=== PATIENT | female | born 1950 | race Caucasian/White ===

== ENCOUNTER 2019-11-05 15:10 | Inpatient (IN) | payer MEDICARE, OTHER ==
[~2019-11-05] VITALS: Ht 152.4 cm; Wt 68.0 kg
--- NOTE | 2019-11-05 15:40 | NUR ---
PATIENT ARRIVED FROM [facility]. PATIENT IS AWAKE AND ALERT. BROTHER, WHO IS POA IS HERE AT BEDSIDE.
--- NOTE | 2019-11-05 16:39 | NUR ---
REPORT GIVEN TO SUHAIL RN...
[2019-11-05] MEDS ORDERED: LORAZEPAM 0.5 MG TABLET PO PRN (17:45)
[2019-11-05] MEDS ORDERED: MAG HYDROX/AL HYDROX/SIMETH 30 ML LIQUID UDC PO PRN (17:45)
[2019-11-05] MEDS ORDERED: BLOOD SUGAR DIAGNOSTIC 1 EACH STRIP VI ONE (17:45)
[2019-11-05] MEDS ORDERED: TEMAZEPAM 7.5 MG CAPSULE PO PRN (17:45)
--- NOTE | 2019-11-05 17:45 | NUR ---
RECEIVED PATIENT FROM ER ADMITTED TO GPS OVER FLOW VOLUNTARY ,CAME TO UNIT [facility]IA [facility] WITH HER BROTHER JULIET CHU. BELONGINGS ACCOUNTED AND SIGNED, NO S/S OF ACUTE DISTRESS NOTED, NO PAIN NOTED. SAFETY AND COMFORT PROVIDED. CALL LIGHT WITHIN REACH. WILL CONTINUE TO MONITOR.
[2019-11-05 17:52] VITALS: BP 103/55
[2019-11-05 20:34] VITALS: BP 141/75
[2019-11-06] MEDS ORDERED: MAGNESIUM HYDROXIDE 30 ML LIQUID UDC PO PRN (03:45)
[2019-11-06 05:09] VITALS: BP 119/63
--- NOTE | 2019-11-06 06:56 | NUR ---
PATIENT ASLEEP . NO S/S SOB AND NO PAIN AT THIS TIME. SAFETY AND COMFORT PROVIDED. CALL LIGHT IN REACH. WILL CONTINUE TO MONITOR
[2019-11-06] MEDS: APIXABAN 5 MG TABLET PO SCH ×2 (11:30→20:35)
[2019-11-06 11:58] VITALS: BP 100/63
[2019-11-06] MEDS: DIGOXIN 250 MCG TABLET PO SCH (13:52)
--- NOTE | 2019-11-06 14:50 | NUR ---
Social Work/Initial Discharge Plan: Patient currently resides at a [address] [place], [place] [address] ([phone]). Patient will return back to the facility upon discharge. Patient's brother/DPOA, Rigo Katz ([phone]) is involved in the patient's care. SW will continue to work with patient, family, and MD to ensure a safe and proper discharge plan.
--- NOTE | 2019-11-06 14:53 | NUR ---
Social Work/Family Contact: utility worker woolen mill spoke with patient's brother/DPOA, Rigo Katz ([phone]) and collected collateral information regarding patient's mental illness. Rigo informed this contract technical writer of the patient's recent decline in functioning, wandering risk, weight loss (21lbs), loss of appetite and sleep. SW confirmed with Rigo that the patient will return to her Board and Care facility upon discharge [address] [place] [address].
[2019-11-06 16:23] VITALS: BP 113/56
[2019-11-06 20:00] VITALS: BP 92/47
--- NOTE | 2019-11-06 20:30 | NUR ---
VSS 97.8-70-20 BP 92/47. SATS 92% ON ROOM AIR. COLOR GOOD. A&O X 3 WITH APPROPRIATE RESPONSES. SKIN WARM, DRY, AND INTACT THROUGHOUT. NO IV OR IVHL. NO SKIN BREAKDOWNS PATIENT AMBULATES TO BATHROOM AND SELF TURNS AND REPOSITIONS. ABDOMEN SOFTLY DISTENDED WITH +BOWEL SOUNDS. LUNGS CTA TO BUL. NO JVD OR OTHER EDEMAS WITH ALL PERIPHERAL PULSES+. PATIENT SIGNS CONSENTS FOR 3 NEW PSYCHOTROPIC MEDS AND WILL BEGIN THESE TONIGHT. PATIENT IS PLEASANT AND COOPERATIVE. MAKES GOOD EYE TO EYE CONTACT AND IS COOPERATIVE TO ALL PHASES OF NURSING CARE. PATIENT SHOWS NO SIGNS OF ANXIETY AT THIS TIME. ASSESSMENT IS ONGOING.
[2019-11-06] MEDS: MONTELUKAST SODIUM 10 MG TABLET PO SCH (20:36)
[2019-11-06] MEDS: TRAZODONE 100 MG TABLET PO SCH (21:39)
[2019-11-06] MEDS: LAMOTRIGINE 25 MG TABLET PO SCH (21:41)
[2019-11-06] MEDS: QUETIAPINE FUMARATE 200 MG TABLET PO SCH (21:42)
[2019-11-07 04:00] VITALS: BP 112/55
[2019-11-07 07:02] LABS: BASOPHILS % (AUTO) 0.4 % (0.0-2.0); EOSINOPHILS # (AUTO) 0.3 K/uL (0.0-0.7); EOSINOPHILS % (AUTO) 4.2 % (0.0-7.0); HEMATOCRIT 38.3 % (31.2-41.9); HEMOGLOBIN 12.7 g/dL (10.9-14.3); LYMPHOCYTES # (AUTO) 1.9 K/uL (20.0-40.0); LYMPHOCYTES % (AUTO) 28.7 % (20.5-51.5); MEAN CORPUSCULAR HEMOGLOBIN 29.9 uug (24.7-32.8); MEAN CORPUSCULAR HGB CONC 33 g/dL (32.3-35.6); MEAN CORPUSCULAR VOLUME 90.5 fL (75.5-95.3); MONOCYTES # (AUTO) 0.6 K/uL (2.0-10.0); MONOCYTES % (AUTO) 8.8 % (0.0-11.0); NEUTROPHILS # (AUTO) 3.8 K/uL (1.8-8.9); NEUTROPHILS % (AUTO) 57.9 % (38.5-71.5); PLATELET COUNT (AUTO) 263 K/uL (179-408); RED BLOOD CELL COUNT(AUTO) 4.23 MIL/uL (3.63-4.92); WHITE BLOOD COUNT (AUTO) 6.6 K/uL (3.8-11.8)
[2019-11-07] MEDS: LEVOTHYROXINE SODIUM 112 MCG TABLET PO SCH (07:09)
[2019-11-07 07:13] LABS: CARBON DIOXIDE 33 mmol/L (21-32); CHLORIDE 105 mmol/L (98-107); CREATININE 0.6 mg/dL (0.6-1.3); GLUCOSE 111 mg/dL (74-106); POTASSIUM 4.1 mmol/L (3.5-5.1); UREA NITROGEN, BLOOD 21 mg/dL (7-18)
[2019-11-07] MEDS: busPIRone 10 MG TABLET PO SCH ×2 (10:52→18:34)
[2019-11-07] MEDS: LAMOTRIGINE 25 MG TABLET PO SCH ×2 (10:53→20:09)
[2019-11-07] MEDS: APIXABAN 5 MG TABLET PO SCH ×2 (10:53→20:04)
[2019-11-07 12:05] VITALS: BP 101/58
[2019-11-07] MEDS: DIGOXIN 250 MCG TABLET PO SCH (14:48)
[2019-11-07 16:00] VITALS: BP 98/49
--- NOTE | 2019-11-07 19:54 | NUR ---
received in bed awake NO S/S OF ACUTE DISTRESS NOTED, NO PAIN NOTED. SAFETY AND COMFORT PROVIDED. WILL CONTINUE TO MONITOR.
--- NOTE | 2019-11-07 19:56 | NUR ---
pt seen by dr napier
[2019-11-07] MEDS: QUETIAPINE FUMARATE 200 MG TABLET PO SCH (20:03)
[2019-11-07] MEDS: TRAZODONE 100 MG TABLET PO SCH (20:04)
[2019-11-07] MEDS: MONTELUKAST SODIUM 10 MG TABLET PO SCH (20:05)
[2019-11-07 21:00] VITALS: BP 93/50
[2019-11-08 04:00] VITALS: BP 95/51
[2019-11-08] MEDS: LEVOTHYROXINE SODIUM 112 MCG TABLET PO SCH (06:10)
[2019-11-08] MEDS: busPIRone 10 MG TABLET PO SCH ×2 (08:30→17:12)
[2019-11-08] MEDS: LAMOTRIGINE 25 MG TABLET PO SCH ×2 (08:31→21:25)
[2019-11-08] MEDS: APIXABAN 5 MG TABLET PO SCH ×2 (08:32→21:28)
[2019-11-08 11:42] VITALS: BP 107/55
[2019-11-08] MEDS: DIGOXIN 250 MCG TABLET PO SCH (15:20)
[2019-11-08 15:23] VITALS: BP 103/61
--- NOTE | 2019-11-08 17:30 | NUR ---
took over care from Miya RN, pt awake alert, on voluntary status, compliant and pleasant, safety measures maintained
--- NOTE | 2019-11-08 18:23 | NUR ---
eating dinner and watching TV but laughing and talking to herself
--- NOTE | 2019-11-08 20:00 | NUR ---
Received patient laying in bed. A/O x 3 with episodes of confusion. Patient is heard talking to herself. When asked who is she talking too? She said "oh nothing, just something on the TV". Patient denies pain or SOB. Med compliant and seen eating. Safety initiated. Call light within reach, will continue to monitor.
[2019-11-08] MEDS: TRAZODONE 100 MG TABLET PO SCH (21:24)
[2019-11-08] MEDS: MONTELUKAST SODIUM 10 MG TABLET PO SCH (21:24)
[2019-11-08] MEDS: QUETIAPINE FUMARATE 200 MG TABLET PO SCH (21:25)
[2019-11-09 05:29] VITALS: BP 152/66
--- NOTE | 2019-11-09 05:29 | NUR ---
Vital signs entered at 0529 was incorrect. It was an error. This set of vitals belongs to a different patient.
--- NOTE | 2019-11-09 05:32 | NUR ---
No changes t/o shift. Patient slept intermittently t/o shift. No PRN's given. Denies pain or SOB. Safety and comfort measures maintained t/o shift. Vital signs stable. All meds given as ordered. Med compliant. No behavioral issues noted. All needs met.
[2019-11-09] MEDS: LEVOTHYROXINE SODIUM 112 MCG TABLET PO SCH (06:13)
--- NOTE | 2019-11-09 07:45 | NUR ---
Received patient in bed, awake and verbally responsive. No signs of distress noted. No SOD. No complain of pain or discomfort. No SI noted. kept clean and comfortable. Will continue to monitor.
[2019-11-09] MEDS: busPIRone 10 MG TABLET PO SCH ×2 (08:38→16:42)
[2019-11-09] MEDS: LAMOTRIGINE 25 MG TABLET PO SCH ×3 (08:38→16:42)
[2019-11-09] MEDS: APIXABAN 5 MG TABLET PO SCH ×2 (08:39→20:35)
[2019-11-09] MEDS: QUETIAPINE FUMARATE 25 MG TABLET PO SCH (08:39)
[2019-11-09] MEDS ORDERED: QUETIAPINE FUMARATE 100 MG TABLET PO SCH (09:00)
[2019-11-09 12:09] VITALS: BP 106/48
[2019-11-09] MEDS: DIGOXIN 250 MCG TABLET PO SCH (13:17)
[2019-11-09 15:43] VITALS: BP 111/54
--- NOTE | 2019-11-09 18:48 | NUR ---
patient in bed, awake and verbally responsive. No signs of distress noted. No SOB. No complain or discomfort noted. No SI/HI noted. No behavior issues throughout my shift. kept clean and comfortable. patient will be transfer to MHU, gave report to Casie.
[2019-11-09 20:27] VITALS: BP 126/70
[2019-11-09] MEDS: TRAZODONE 100 MG TABLET PO SCH (20:32)
[2019-11-09] MEDS: QUETIAPINE FUMARATE 200 MG TABLET PO SCH (20:33)
[2019-11-09] MEDS: MONTELUKAST SODIUM 10 MG TABLET PO SCH (21:00)
--- NOTE | 2019-11-09 22:00 | NUR ---
received pt on unit at 1900. pleasant upon approach. compliant with medications and staff direction. observed to be singing/talking to self, at times. as of 2200, she appears to be asleep. no distress noted. will continue to monitor closely.
--- NOTE | 2019-11-10 01:36 | NUR ---
pt is now awake, and restless; PRN restoril was given, for insomnia.
--- NOTE | 2019-11-10 02:00 | NUR ---
appears to be asleep. no distress noted.
--- NOTE | 2019-11-10 03:00 | NUR ---
appears to be asleep. no distress noted.
--- NOTE | 2019-11-10 03:00 | NUR ---
appears to be asleep. no distress noted.
--- NOTE | 2019-11-10 06:00 | NUR ---
slept well. continues to sleep. no distress noted.
[2019-11-10 07:30] VITALS: BP 111/60
[2019-11-10] MEDS: LAMOTRIGINE 25 MG TABLET PO SCH ×3 (08:20→16:22)
[2019-11-10] MEDS: QUETIAPINE FUMARATE 25 MG TABLET PO SCH (08:20)
[2019-11-10] MEDS: APIXABAN 5 MG TABLET PO SCH ×2 (08:29→20:03)
[2019-11-10] MEDS: busPIRone 10 MG TABLET PO SCH ×2 (12:23→16:23)
[2019-11-10] MEDS: LEVOTHYROXINE SODIUM 112 MCG TABLET PO SCH (12:23)
[2019-11-10] MEDS: DIGOXIN 250 MCG TABLET PO SCH (12:24)
[2019-11-10 15:00] VITALS: BP 111/62
--- NOTE | 2019-11-10 16:36 | NUR ---
Gps/Labor Relations Officer- Noted talking to herself, occ. singing , pleasant affect, redirectable, compliant with mediciations..Adequate relief from lower back pain, safety reviewed and continue to emphasized
[2019-11-10] MEDS: ACETAMINOPHEN 325 MG TABLET PO PRN (18:18)
[2019-11-10 20:00] VITALS: BP 116/82
[2019-11-10] MEDS: QUETIAPINE FUMARATE 200 MG TABLET PO SCH (20:01)
[2019-11-10] MEDS: TRAZODONE 100 MG TABLET PO SCH (20:01)
[2019-11-10] MEDS: MONTELUKAST SODIUM 10 MG TABLET PO SCH (20:01)
[2019-11-11] MEDS: LEVOTHYROXINE SODIUM 112 MCG TABLET PO SCH (06:20)
[2019-11-11 08:00] VITALS: BP 110/59
[2019-11-11] MEDS: busPIRone 10 MG TABLET PO SCH ×2 (09:06→16:38)
[2019-11-11] MEDS: LAMOTRIGINE 25 MG TABLET PO SCH ×3 (09:07→16:38)
[2019-11-11] MEDS: APIXABAN 5 MG TABLET PO SCH ×2 (09:08→20:22)
--- NOTE | 2019-11-11 10:49 | NUR ---
Received patient asleep in her assigned bed. Bed is in low and locked position. During face to face assessment, patient is calm, cooperative, and redirectable. She is medication adherent, no adverse reaction noted. Patient denies SI/HI, denies AH/VH. Patient is educated about communicating needs to staff appropriately and impulse control, able to verbalize understanding. Patient is able to tolerate food and fluids. Will continue to monitor.
[2019-11-11] MEDS: DIGOXIN 250 MCG TABLET PO SCH (13:51)
[2019-11-11 15:00] VITALS: BP 107/52
[2019-11-11 15:16] VITALS: BP 107/62
[2019-11-11 20:05] VITALS: BP 110/52
[2019-11-11] MEDS: TRAZODONE 100 MG TABLET PO SCH (20:17)
[2019-11-11] MEDS: QUETIAPINE FUMARATE 200 MG TABLET PO SCH (20:18)
[2019-11-11] MEDS: MONTELUKAST SODIUM 10 MG TABLET PO SCH (20:19)
--- NOTE | 2019-11-12 02:38 | NUR ---
RECEIVED PATIENT IN BED. PLEASANT UPON APPROACH BUT COULD BE HEARD TALKING TO HERSELF WITH SMILES OCCASIONALLY. DENIES HEARING VOICES.ALSO DENIES PAIN OR DISCOMFORT. MOOD IS LABILE. SHE IS MEDICATION COMPLIANT . VISUAL CHECKS MADE ON HER FOR SAFETY.WILL CONTINUE TO MONITOR.
[2019-11-12] MEDS: LEVOTHYROXINE SODIUM 112 MCG TABLET PO SCH (06:25)
--- NOTE | 2019-11-12 06:57 | NUR ---
SLEPT FOR 9;15 HRS.TOOK ALL MEDS WELL.
[2019-11-12 07:30] VITALS: BP 112/58
[2019-11-12] MEDS: busPIRone 10 MG TABLET PO SCH ×2 (08:32→17:31)
[2019-11-12] MEDS: LAMOTRIGINE 25 MG TABLET PO SCH ×3 (08:32→17:30)
[2019-11-12] MEDS: APIXABAN 5 MG TABLET PO SCH ×2 (08:34→20:08)
[2019-11-12] MEDS: DIGOXIN 250 MCG TABLET PO SCH (12:28)
[2019-11-12 15:12] VITALS: BP 107/74
[2019-11-12 20:00] VITALS: BP 131/77
[2019-11-12] MEDS: TRAZODONE 100 MG TABLET PO SCH (20:07)
[2019-11-12] MEDS: QUETIAPINE FUMARATE 200 MG TABLET PO SCH (20:07)
[2019-11-12] MEDS: MONTELUKAST SODIUM 10 MG TABLET PO SCH (20:10)
--- NOTE | 2019-11-13 01:00 | NUR ---
Social Work Individual Therapy Note: County Director met with patient today to provide brief individual supportive counseling. Patient presented with euthymic mood and congruent affect. SW explored patient' feelings and emotions, however, patient presented internally pre-occupied. Patient was able to minimally engage in conversation but was non-sensical. Patient denies auditory hallucinations. County Director will remain available to patient and continue to proide supportive counseling.
--- NOTE | 2019-11-13 06:08 | NUR ---
Received Pt awake in bed, pleasant on approach. A+Ox3 with episodes of forgetfulness. Noted to laugh to herself inappropriately and respond to internal stimuli at times. Superficially bright affect. Denies SI/HI. Noted to be isolative and withdrawn. Compliant with medications. No aggressive behaviors.
[2019-11-13] MEDS: LEVOTHYROXINE SODIUM 112 MCG TABLET PO SCH (06:16)
[2019-11-13] MEDS: ACETAMINOPHEN 325 MG TABLET PO PRN (06:30)
[2019-11-13 07:30] VITALS: BP 99/50
[2019-11-13] MEDS: busPIRone 10 MG TABLET PO SCH ×2 (08:20→17:50)
[2019-11-13] MEDS: LAMOTRIGINE 25 MG TABLET PO SCH ×3 (08:20→17:50)
[2019-11-13] MEDS: APIXABAN 5 MG TABLET PO SCH ×2 (08:26→20:43)
--- NOTE | 2019-11-13 12:16 | NUR ---
Social Work/Family Contact: blade worker spoke with patient's brother/DPOA, Rigo Katz ([phone]) regarding patient's discharge plans. Rigo stated that he would ideally want a new independent living or board and care for the patient, that does not have to be in [facility]. ELINOR informed Rigo that she will have [facility] ([phone]) call him for placement options in the [place]. ELINOR then spoke with [facility] and will follow up.
[2019-11-13] MEDS: DIGOXIN 250 MCG TABLET PO SCH (12:52)
[2019-11-13 15:24] VITALS: BP 109/54
--- NOTE | 2019-11-13 19:32 | NUR ---
Patient received from u in stable condition 17:45; patient responsive to internal stimuli but with no signs of distress; and stable vital signs; patient will continue to be monitored
--- NOTE | 2019-11-13 20:00 | NUR ---
RECEIVED PATIENT AWAKE IN BED, WATCHING TV. PATIENT IS A/O X3. DENIES PAIN OR DISCOMFORT. NO RESP. DISTRESS NOTED. BED ALARM ON. CALL LIGHT IN REACH. ALL NEEDS ATTENDED. WILL CONTINUE TO MONITOR AND ASSESS.
[2019-11-13 20:04] VITALS: BP 107/74
[2019-11-13] MEDS: QUETIAPINE FUMARATE 200 MG TABLET PO SCH (20:28)
[2019-11-13] MEDS: TRAZODONE 100 MG TABLET PO SCH (20:29)
[2019-11-13] MEDS: MONTELUKAST SODIUM 10 MG TABLET PO SCH (20:29)
--- NOTE | 2019-11-14 00:20 | NUR ---
Hands off report received. Pt in no acute distress. Will continue to monitor.
[2019-11-14] MEDS: LEVOTHYROXINE SODIUM 112 MCG TABLET PO SCH (06:35)
--- NOTE | 2019-11-14 06:47 | NUR ---
Pt slept 7 hours. Pt in no acute distress. Pt cooperative with care and can make her needs known. . Safety and comfort provided. Will endorse to incoming nurse for continuity of care.
--- NOTE | 2019-11-14 08:00 | NUR ---
RECEIVED PATIENT AWAKE IN BED, WATCHING TV. PATIENT IS A/O X3. DENIES PAIN OR DISCOMFORT. NO RESP. DISTRESS NOTED. BED ALARM ON. CALL LIGHT IN REACH. ALL NEEDS ATTENDED. WILL CONTINUE TO MONITOR AND ASSESS FOR SAFETY AND COMFORT.
[2019-11-14] MEDS: busPIRone 10 MG TABLET PO SCH ×2 (09:40→17:53)
[2019-11-14] MEDS: LAMOTRIGINE 25 MG TABLET PO SCH ×3 (09:41→17:53)
[2019-11-14] MEDS: APIXABAN 5 MG TABLET PO SCH ×2 (09:42→20:52)
[2019-11-14 11:26] VITALS: BP 98/47
[2019-11-14] MEDS: DIGOXIN 250 MCG TABLET PO SCH (13:38)
[2019-11-14 15:26] VITALS: BP 95/57
--- NOTE | 2019-11-14 18:20 | NUR ---
PATIENT AWAKE IN BED, WATCHING TV. PATIENT IS A/O X3. DENIES PAIN OR DISCOMFORT. NO RESP. DISTRESS NOTED. BED ALARM ON. CALL LIGHT IN REACH. PT'S RIGHT FOOT APPEARS REDDENED AND WARM ANS SWOLLEN ON TOP. DR BEYER AWARE. ALL NEEDS ATTENDED. WILL GIVE REPORT ACCORDINGLY. .
[2019-11-14 20:05] VITALS: BP 102/66
[2019-11-14] MEDS: TRAZODONE 100 MG TABLET PO SCH (20:48)
[2019-11-14] MEDS: MONTELUKAST SODIUM 10 MG TABLET PO SCH (20:48)
[2019-11-14] MEDS: QUETIAPINE FUMARATE 200 MG TABLET PO SCH (20:48)
--- NOTE | 2019-11-15 05:19 | NUR ---
Patient slept t/o shift. No behavioral issues noted. Vital signs stable. Medications given as ordered. Med compliant. Safety and comfort measures maintained t/o shift. All needs met.
[2019-11-15] MEDS: LEVOTHYROXINE SODIUM 112 MCG TABLET PO SCH (06:10)
[2019-11-15 06:19] LABS: BASOPHILS % (AUTO) 0.7 % (0.0-2.0); EOSINOPHILS # (AUTO) 0.2 K/uL (0.0-0.7); EOSINOPHILS % (AUTO) 3.3 % (0.0-7.0); HEMATOCRIT 38.8 % (31.2-41.9); HEMOGLOBIN 12.9 g/dL (10.9-14.3); LYMPHOCYTES # (AUTO) 1.5 K/uL (20.0-40.0); LYMPHOCYTES % (AUTO) 28.5 % (20.5-51.5); MEAN CORPUSCULAR HEMOGLOBIN 30.1 uug (24.7-32.8); MEAN CORPUSCULAR HGB CONC 33 g/dL (32.3-35.6); MEAN CORPUSCULAR VOLUME 90.7 fL (75.5-95.3); MONOCYTES # (AUTO) 0.4 K/uL (2.0-10.0); MONOCYTES % (AUTO) 8.3 % (0.0-11.0); NEUTROPHILS % (AUTO) 59.2 % (38.5-71.5); PLATELET COUNT (AUTO) 234 K/uL (179-408); RED BLOOD CELL COUNT(AUTO) 4.28 MIL/uL (3.63-4.92); WHITE BLOOD COUNT (AUTO) 5.1 K/uL (3.8-11.8)
[2019-11-15 06:51] LABS: THYROID STIMULATING HORMONE 0.647 mIU/mL (0.358-3.740)
[2019-11-15 07:26] LABS: BILIRUBIN,TOTAL 0.3 mg/dL (0.2-1.0); CREATININE 0.7 mg/dL (0.6-1.3); POTASSIUM 4.1 mmol/L (3.5-5.1); TOTAL PROTEIN, SERUM 6.4 g/dL (6.4-8.2)
--- NOTE | 2019-11-15 07:32 | NUR ---
RECEIVED PATIENT ALERT AND AWAKE IN BED. NO S/S OF ACUTE DISTRESS NOTED.NO C/O PAIN AT THIS TIME. SAFETY AND COMFORT PROVIDED . CALL LIGHT WITHIN REACH. WILL CONTINUE TO MONITOR
[2019-11-15] MEDS: busPIRone 10 MG TABLET PO SCH ×2 (09:34→17:42)
[2019-11-15] MEDS: LAMOTRIGINE 25 MG TABLET PO SCH ×3 (09:34→17:42)
[2019-11-15] MEDS: APIXABAN 5 MG TABLET PO SCH ×2 (09:35→21:34)
--- NOTE | 2019-11-15 10:59 | NUR ---
Social Work/Family Contact: poultry process worker received a phone call and spoke with patient's brother/DPOA, Rigo Katz ([phone]) who was concerned about the patient's discharge if patient is not ready. Rigo stated that he feels the patient continues to remain increasingly anxious and has auditory hallucinations and is not ready to go to a Board and Care just yet. ELINOR shared these concerns with Dr. Roman who stated that he will meet with the patient today and adjust her medications. However, patient is accepted to a Board and Care after [facility] ([phone]) evaluated the patient yesterday to [facility] [address] [address]. Patient discharge is pending for Wednesday11/17/19.
[2019-11-15 11:33] VITALS: BP 112/69
[2019-11-15] MEDS: DIGOXIN 250 MCG TABLET PO SCH (12:48)
[2019-11-15 15:23] VITALS: BP 101/60
[2019-11-15 17:07] LABS: *BILIRUBIN,URIN NEGATIVE (NEGATIVE); *BLOOD, URINE NEGATIVE (NEGATIVE); *CLARITY,URINE CLOUDY (CLEAR); *COLOR,URINE YELLOW (YELLOW); *KETONES,URINE NEGATIVE (NEGATIVE); LEUKOCYTE ESTERASE ,URINE 1+ (NEGATIVE); NITRITE, URINE NEGATIVE (NEGATIVE); UGLUCOSE NEGATIVE (NEGATIVE)
[2019-11-15 17:22] LABS: BACTERIA,URINE MANY /HPF (NONE SEEN); SQUAMOUS EPITHELIAL CELL,UR MANY /HPF (NONE SEEN)
--- NOTE | 2019-11-15 20:00 | NUR ---
Patient received into care, sitting up in bed, resting comfortably. Pateint is alert/oriented x2 and has no complaints of pain or discomfort at this time. All safety and fall precaution measures are in place. Personal items are within reach at all times. Will continue to monitor and assess.
[2019-11-15 20:51] VITALS: BP 126/66
[2019-11-15] MEDS: QUETIAPINE FUMARATE 200 MG TABLET PO SCH (21:31)
[2019-11-15] MEDS: TRAZODONE 100 MG TABLET PO SCH (21:31)
[2019-11-15] MEDS: MONTELUKAST SODIUM 10 MG TABLET PO SCH (21:35)
[2019-11-15] MEDS: CEphaleXIN 500 MG CAPSULE PO SCH (21:42)
--- NOTE | 2019-11-16 04:44 | NUR ---
Patient slept 4 hours. Patient states she did not sleep well at all.
--- NOTE | 2019-11-16 05:44 | NUR ---
Patient slept intermittently throughout night with no complaints of pain or discomfort verbalized nor any sighs/symptoms of acute distress/discomfort noted or observed by nurse. Patient was compliant with all aspects of care and she is warm, dry, and comfortable. Safety and fall precaution measures remain in place. Personal items remain within reach.
[2019-11-16] MEDS: LEVOTHYROXINE SODIUM 112 MCG TABLET PO SCH (06:05)
[2019-11-16] MEDS: CEphaleXIN 500 MG CAPSULE PO SCH ×3 (06:05→21:00)
--- NOTE | 2019-11-16 07:30 | NUR ---
RECEIVED PATIENT ALERT AND AWAKE IN BED. NO S/S OF ACUTE DISTRESS NOTED.NO C/O PAIN AT THIS TIME. SAFETY AND COMFORT PROVIDED .
[2019-11-16] MEDS: CYANOCOBALAMIN 1000 MCG/ML VIAL IM SCH (08:16)
[2019-11-16] MEDS: busPIRone 10 MG TABLET PO SCH ×2 (08:16→16:03)
[2019-11-16] MEDS: LAMOTRIGINE 25 MG TABLET PO SCH ×3 (08:16→16:07)
[2019-11-16] MEDS: APIXABAN 5 MG TABLET PO SCH ×2 (08:19→20:58)
[2019-11-16] MEDS ORDERED: QUETIAPINE FUMARATE 100 MG TABLET PO SCH (09:00)
--- NOTE | 2019-11-16 10:53 | NUR ---
pt is talking to her self
[2019-11-16 11:00] VITALS: BP 90/53
[2019-11-16] MEDS: DIGOXIN 250 MCG TABLET PO SCH (12:08)
--- NOTE | 2019-11-16 12:20 | NUR ---
Social Work Individual Therapy Note: Garment Patternmaker met with patient today to provide brief individual supportive counseling. Patient presented with euthymic mood and congruent affect. Patient presented lying in bed. Patient denied auditory hallucinations stating, "I think I hear my brother's voice then I realize he's not actually here". Patient was laughing at her own statements. SW explored patient' feelings and emotions, and discussed discharge plans. Patient was increasingly excited and happy to be going to a new Board and Care placement and stated, "I really like the girl I met from there yesterday". Patient was able to engage in conversation. Garment Patternmaker will remain available to patient and continue to provide supportive counseling.
[2019-11-16 15:00] VITALS: BP 102/56
[2019-11-16 20:25] VITALS: BP 110/69
[2019-11-16] MEDS: TRAZODONE 100 MG TABLET PO SCH (20:57)
[2019-11-16] MEDS: MONTELUKAST SODIUM 10 MG TABLET PO SCH (20:57)
[2019-11-16] MEDS: QUETIAPINE FUMARATE 200 MG TABLET PO SCH (20:57)
--- NOTE | 2019-11-17 06:13 | NUR ---
PATIENT AWAKE IN BED. SLEPT WELL. DENIES PAIN. VSS. CALL LIGHT IN REACH. ALL NEEDS ATTENDED. WILL CONTINUE TO MONITOR AND ASSESS.
[2019-11-17] MEDS: LEVOTHYROXINE SODIUM 112 MCG TABLET PO SCH (06:16)
[2019-11-17] MEDS: CEphaleXIN 500 MG CAPSULE PO SCH ×2 (06:16→13:14)
--- NOTE | 2019-11-17 08:36 | NUR ---
Social Work Discharge Note: Patient will be discharged to [facility] [address] [facility] [address] ([phone]). [facility] ([phone]) states they are ready to accept the patient today. Patients brother/DPOA is aware and agreeable with discharge plans and has agreed to provide transportation for the patient at 1:00pm. Patient is aware and agreeable with discharge plans. Patient is alert and oriented x3-4, is unable to plan for self-care at this time, however, is willing to accept care at the facility. Patient denies any suicidal or homicidal ideation. Patient will be provided with in home health services by the facility to ensure medication management, shower assistance, and physical therapy. The facility is providing a 24-hour caregiver for the patient, who will also assist with meals, laundry, and safety. The patient will be following up with a primary are physician at the facility Dr. Cheikh Rocha and psychiatrist Dr. Thomas. Patient was provided with outpatient mental health resources to [facility] , and the National Suicide Prevention Lifeline .
[2019-11-17] MEDS ORDERED: QUETIAPINE FUMARATE 200 MG TABLET PO SCH (09:00)
[2019-11-17] MEDS ORDERED: QUETIAPINE FUMARATE 100 MG TABLET PO SCH (09:00)
[2019-11-17] MEDS: LAMOTRIGINE 25 MG TABLET PO SCH ×2 (09:30→13:15)
[2019-11-17] MEDS: busPIRone 10 MG TABLET PO SCH (09:30)
[2019-11-17] MEDS: CYANOCOBALAMIN 1000 MCG/ML VIAL IM SCH (09:30)
[2019-11-17] MEDS: APIXABAN 5 MG TABLET PO SCH (09:32)
[2019-11-17 11:10] VITALS: BP 104/57
[2019-11-17] MEDS: DIGOXIN 250 MCG TABLET PO SCH (13:14)
== END 2019-11-17 14:20 | DRG 885 ==
LOC: ER 15:17 → GPSOV3 16:48 → GPS 11-09 19:16 → GPSOV3 11-13 16:50
PROVIDERS: ADMIT Psychiatry & Neurology Psychiatry; ATTEND Nurse Practitioner Acute Care
DX: F31.2 Bipolar disorder, current episode manic severe with psychotic features (principal); E87.1 Hypo-osmolality and hyponatremia; D68.59 Other primary thrombophilia; Z87.440 Personal history of urinary (tract) infections; Z91.83 Wandering in diseases classified elsewhere; Z96.653 Presence of artificial knee joint, bilateral; I48.91 Unspecified atrial fibrillation; Z95.0 Presence of cardiac pacemaker; Z91.5 Personal history of self-harm; E86.0 Dehydration; Z79.01 Long term (current) use of anticoagulants; Z79.890 Hormone replacement therapy; F03.90 Unspecified dementia, unspecified severity, without behavioral disturbance, psychotic disturbance, mood disturbance, and anxiety
CPT/HCPCS: 36415; 83735; 84100; 84443; 85025; 87086; A4663; J3420

== ENCOUNTER 2020-02-06 12:12 | Inpatient (IN) | payer MEDICARE, OTHER ==
[~2020-02-06] VITALS: Ht 152.4 cm; Wt 59.0 kg
[~2020-02-06 12:12] MED LIST: APIX5TAB PO; DIGO250T PO; LEVO112T5 PO; MONT10TA22 PO
[2020-02-06] MEDS ORDERED: ACETAMINOPHEN ES 500 MG TABLET PO ONE (12:30)
[2020-02-06] MEDS ORDERED: OLANZAPINE 10 MG VIAL IM ONE (12:45)
[2020-02-06] MEDS ORDERED: ACETAMINOPHEN ES 500 MG TABLET ONE (12:46)
[2020-02-06 13:10] LABS: *BLOOD, URINE NEGATIVE (NEGATIVE); *CLARITY,URINE SLIGHTLY CLOUDY (CLEAR); *COLOR,URINE DARK YELLOW (YELLOW); *KETONES,URINE TRACE (NEGATIVE); *UROBILINOGEN,URINE 0.2 E.U./dl (NORMAL); LEUKOCYTE ESTERASE ,URINE NEGATIVE (NEGATIVE); NITRITE, URINE NEGATIVE (NEGATIVE); PH,URINE 5.5 (5.0-8.0); UGLUCOSE NEGATIVE (NEGATIVE)
[2020-02-06 13:22] LABS: POTASSIUM 3.4 mmol/L (3.5-5.1)
[2020-02-06 13:26] LABS: BASOPHILS % (AUTO) 0.3 % (0.0-2.0); EOSINOPHILS % (AUTO) 0.1 % (0.0-7.0); HEMATOCRIT 48.8 % (31.2-41.9); LYMPHOCYTES # (AUTO) 1.7 K/uL (20.0-40.0); MEAN CORPUSCULAR HEMOGLOBIN 29.9 uug (24.7-32.8); MEAN CORPUSCULAR HGB CONC 33 g/dL (32.3-35.6); MEAN CORPUSCULAR VOLUME 91.4 fL (75.5-95.3); MONOCYTES # (AUTO) 0.8 K/uL (2.0-10.0); MONOCYTES % (AUTO) 6.8 % (0.0-11.0); NEUTROPHILS # (AUTO) 9.6 K/uL (1.8-8.9); NEUTROPHILS % (AUTO) 78.8 % (38.5-71.5); PLATELET COUNT (AUTO) 268 K/uL (179-408); RED BLOOD CELL COUNT(AUTO) 5.34 MIL/uL (3.63-4.92); WHITE BLOOD COUNT (AUTO) 12.2 K/uL (3.8-11.8)
[2020-02-06 13:26] LABS: *BILIRUBIN,URIN 1+ (NEGATIVE)
[2020-02-06 13:27] LABS: BILIRUBIN,DIRECT 0.2 mg/dL (0.0-0.2); BILIRUBIN,TOTAL 0.5 mg/dL (0.2-1.0); TOTAL PROTEIN, SERUM 7.6 g/dL (6.4-8.2)
[2020-02-06 13:30] LABS: RBC,URINE 0-3 /HPF (0-3)
[2020-02-06 13:31] LABS: BACTERIA,URINE FEW /HPF (NONE SEEN); MUCUS,URINE FEW /LPF (0-FEW); SQUAMOUS EPITHELIAL CELL,UR MANY /HPF (NONE SEEN)
[2020-02-06] MEDS ORDERED: IV NORMAL SALINE 1000 ML BAG IV ONE (13:45)
[2020-02-06] MEDS ORDERED: PIPERACILLIN SODIUM/TAZOBACTAM 3.375 G in IV DEXTROSE 5% 50 ML IV ONE (13:45)
[2020-02-06] MEDS ORDERED: levoFLOXacin 750MG/D5W 150 ML IV ONE ×2 (13:45→15:09)
--- NOTE | 2020-02-06 13:52 | NUR ---
PATIENT HERE FROM A BOARD AND [facility]. HER BROTHER BROUGHT HER IN FOR C/O "MANIC EPISODE". PATIENT IS AWAKE AND IS AGITATED. PLACED IN ROOM 4 AND REASURED HER OF HR SAFETY. PATIENT HAS A FEVER, CONFIRMED VIA RECTAL TEMP. BROTHER SAYS SHE HAS NOT BEEN AROUND ANYONE WITH COVID AND LIVES WITH 3-4 OTHERS AT A BOARD AND [facility]. PLACED ON A MONITOR.
[2020-02-06] MEDS ORDERED: BUSP5TAB3 PO (14:06)
[2020-02-06] MEDS ORDERED: DULO30CA2 PO (14:06)
[2020-02-06] MEDS ORDERED: ALPR0.5T8 PO (14:06)
[2020-02-06] MEDS ORDERED: LAMO25TA10 PO (14:06)
[2020-02-06] MEDS ORDERED: QUET200T PO (14:06)
[2020-02-06] MEDS ORDERED: TRAZ-257 PO (14:06)
[2020-02-06] MEDS ORDERED: PIPERACILLIN/TAZOBACTAM/D5W 50 ML IV ONE (14:11)
--- NOTE | 2020-02-06 14:30 | NUR ---
A call from Epic group Jesus Manuel Castillo and Dr. pippa Mcdonald report with Lin Bridges.
--- NOTE | 2020-02-06 15:03 | NUR ---
report given to Robert PENG. Brother aware of pending admission.
[2020-02-06 15:40] VITALS: BP 118/73
--- NOTE | 2020-02-06 15:40 | NUR ---
Received pt from ER awake, oriented but a little restless. On RA with no SOB and distress noted at this time, saturating 96%. Right AC 20g continued Levaquin from ER. Redness on left breast fold, right groin redness and sacral redness noted, pictures taken and placed in chart. No complaints of pain at this time. Oriented to unit and room, call light within reach, bed locked in lowest position with siderails 3x up. Will continue to monitor
[2020-02-06] MEDS ORDERED: MORPHINE SULFATE 2 MG/1 ML DISP.SYRIN IV PRN (16:45)
[2020-02-06] MEDS ORDERED: AZITHROMYCIN IV 500 MG in IV DEXTROSE 5% 250 ML IV SCH (16:45)
[2020-02-06] MEDS ORDERED: ACETAMINOPHEN 325 MG TABLET PO PRN (16:45)
[2020-02-06] MEDS ORDERED: busPIRone 5 MG TABLET PO SCH (17:00)
--- NOTE | 2020-02-06 17:00 | NUR ---
Pt had dinner and meds, able to swallow with no issues. Pt having manic episode, humming and restless.
[2020-02-06] MEDS: QUETIAPINE FUMARATE 200 MG TABLET PO SCH (17:31)
[2020-02-06] MEDS: CEFTRIAXONE 1 G in IV DEXTROSE 5% 50 ML IV SCH (17:31)
[2020-02-06] MEDS: ALPRAZOLAM 0.5 MG TABLET PO SCH (17:33)
[2020-02-06] MEDS: APIXABAN 5 MG TABLET PO SCH (17:33)
[2020-02-06] MEDS: busPIRone 10 MG TABLET PO SCH (17:33)
[2020-02-06 19:30] VITALS: BP 109/64
--- NOTE | 2020-02-06 19:35 | NUR ---
called the brother, Rigo, for admission assessment. Doesn't remember the name of pt's Board and Care. Can only answer few questions.
[2020-02-06] MEDS: TRAZODONE 100 MG TABLET PO SCH (21:37)
[2020-02-06] MEDS: MONTELUKAST SODIUM 10 MG TABLET PO SCH (21:38)
[2020-02-06] MEDS: LAMOTRIGINE 25 MG TABLET PO SCH (21:38)
[2020-02-07] VITALS (7 sets, daily range): BP systolic 104–140; BP diastolic 66–85
--- NOTE | 2020-02-07 00:40 | NUR ---
temperature of 100.4. tylenol administered. will continue care. Addendum: 02/07/20 at 2141 by CARTER WAN RN correction: incorrect patient. please disregard.
[2020-02-07 06:41] LABS: BASOPHILS % (AUTO) 0.3 % (0.0-2.0); EOSINOPHILS # (AUTO) 0.1 K/uL (0.0-0.7); EOSINOPHILS % (AUTO) 0.7 % (0.0-7.0); HEMATOCRIT 42.9 % (31.2-41.9); HEMOGLOBIN 14.1 g/dL (10.9-14.3); LYMPHOCYTES # (AUTO) 1.9 K/uL (20.0-40.0); LYMPHOCYTES % (AUTO) 22.6 % (20.5-51.5); MEAN CORPUSCULAR HEMOGLOBIN 29.9 uug (24.7-32.8); MEAN CORPUSCULAR HGB CONC 33 g/dL (32.3-35.6); MEAN CORPUSCULAR VOLUME 91.3 fL (75.5-95.3); MONOCYTES # (AUTO) 0.7 K/uL (2.0-10.0); MONOCYTES % (AUTO) 7.8 % (0.0-11.0); NEUTROPHILS # (AUTO) 5.8 K/uL (1.8-8.9); NEUTROPHILS % (AUTO) 68.6 % (38.5-71.5); PLATELET COUNT (AUTO) 225 K/uL (179-408); WHITE BLOOD COUNT (AUTO) 8.5 K/uL (3.8-11.8)
[2020-02-07] MEDS ORDERED: LEVOTHYROXINE SODIUM 112 MCG TABLET PO SCH (07:00)
[2020-02-07] MEDS ORDERED: PANTOPRAZOLE SODIUM 40 MG TABLET.DR PO SCH (07:00)
[2020-02-07 07:04] LABS: BILIRUBIN,TOTAL 0.5 mg/dL (0.2-1.0); CREATININE 0.9 mg/dL (0.6-1.3); MAGNESIUM 2.1 mg/dL (1.8-2.4); PHOSPHOROUS 3.4 mg/dL (2.5-4.9); POTASSIUM 3.5 mmol/L (3.5-5.1); THYROID STIMULATING HORMONE 0.276 mIU/mL (0.358-3.740); TOTAL PROTEIN, SERUM 6.4 g/dL (6.4-8.2)
[2020-02-07] MEDS: DULOXETINE 30 MG CAPSULE.DR PO SCH (08:35)
[2020-02-07] MEDS: ALPRAZOLAM 0.5 MG TABLET PO SCH ×2 (08:35→17:36)
[2020-02-07] MEDS: DIGOXIN 250 MCG TABLET PO SCH (08:35)
[2020-02-07] MEDS: busPIRone 10 MG TABLET PO SCH ×2 (08:35→17:36)
[2020-02-07] MEDS: APIXABAN 5 MG TABLET PO SCH ×2 (08:35→17:37)
[2020-02-07] MEDS: QUETIAPINE FUMARATE 200 MG TABLET PO SCH ×2 (08:35→17:36)
--- NOTE | 2020-02-07 11:40 | NUR ---
WOUND CARE CONSULT: PT PRESENTS WITH RASH TO GROIN FOLDS AND BREASTFOLDS, PRESENT ON ADMISSION. RECOMMENDATIONS MADE FOR SKIN PROTECTION. DISCUSSED WITH NURSING STAFF. DALE CONRAD. WILL SEE PRN. GALLARDO IN AGREEMENT WITH PLAN OF CARE. CURRENT SARAH SCORE IS 15. Addendum: 02/07/20 at 1141 by REDD RIVERS RN Amended: Links added.
[2020-02-07] MEDS ORDERED: Z GUARD REMEDY PASTE 57 GM TUBE TOP PRN (11:45)
[2020-02-07] MEDS: CEFTRIAXONE 1 G in IV DEXTROSE 5% 50 ML IV SCH (17:36)
[2020-02-07] MEDS: CLOTRIMAZOLE 1% CREAM 30 GM TUBE TOP SCH (17:38)
--- NOTE | 2020-02-07 18:05 | NUR ---
Pt AAOx2. Pleasant when approached, no manic episode noted during shift. Afebrile. IV Rocephin infusing as ordered. Compliant with care and medications. Will endorse care accordingly.
[2020-02-07] MEDS: ATORVASTATIN 10 MG TABLET PO SCH (20:56)
[2020-02-07] MEDS: MONTELUKAST SODIUM 10 MG TABLET PO SCH (20:56)
[2020-02-07] MEDS: LAMOTRIGINE 25 MG TABLET PO SCH (20:56)
[2020-02-07] MEDS: Z GUARD REMEDY PASTE 57 GM TUBE TOP SCH (20:58)
[2020-02-07] MEDS: TRAZODONE 100 MG TABLET PO SCH (20:58)
--- NOTE | 2020-02-07 23:25 | NUR ---
patient transferred after covid result of negative reported. dr. Musa and charge nurse aware of results. and night charge nurse aware. report given to night nurse on med/surg tele floor. patients chart, belongings and medications in pyxis room tray given transferred with patietn.
--- NOTE | 2020-02-07 23:31 | NUR ---
Received report from GINETTE Stein. Patient shows no signs or symptoms of distress at this time. Vital signs stable. O2 saturation is 97% on RA and is also afebrile. Patient is awake but confused at times. Patient is negative for COVID. Bed set to lowest position. Call light within reach. Will continue to monitor patient.
[2020-02-08 04:00] VITALS: BP 135/94
[2020-02-08 06:06] LABS: BASOPHILS % (AUTO) 0.5 % (0.0-2.0); EOSINOPHILS # (AUTO) 0.2 K/uL (0.0-0.7); EOSINOPHILS % (AUTO) 2.9 % (0.0-7.0); HEMATOCRIT 42.9 % (31.2-41.9); HEMOGLOBIN 14.1 g/dL (10.9-14.3); LYMPHOCYTES # (AUTO) 1.7 K/uL (20.0-40.0); LYMPHOCYTES % (AUTO) 20.3 % (20.5-51.5); MEAN CORPUSCULAR HGB CONC 33 g/dL (32.3-35.6); MEAN CORPUSCULAR VOLUME 91.6 fL (75.5-95.3); MONOCYTES # (AUTO) 0.6 K/uL (2.0-10.0); MONOCYTES % (AUTO) 6.5 % (0.0-11.0); NEUTROPHILS # (AUTO) 5.9 K/uL (1.8-8.9); NEUTROPHILS % (AUTO) 69.8 % (38.5-71.5); PLATELET COUNT (AUTO) 213 K/uL (179-408); RED BLOOD CELL COUNT(AUTO) 4.68 MIL/uL (3.63-4.92); WHITE BLOOD COUNT (AUTO) 8.5 K/uL (3.8-11.8)
[2020-02-08 06:15] LABS: CREATININE 0.9 mg/dL (0.6-1.3); PHOSPHOROUS 3.4 mg/dL (2.5-4.9); POTASSIUM 3.9 mmol/L (3.5-5.1)
--- NOTE | 2020-02-08 06:54 | NUR ---
Patient shows no signs or symptoms of distress at this time. Vital signs stable. No signs or peggy throughout the shift. Patient is able to be reoriented and is cooperative. Controlled a-fib on monitor with V-pacing. Will endorse patient to day shift nurse in stable condition.
--- NOTE | 2020-02-08 07:10 | NUR ---
Received patient resting in bed, awake and alert. No S/S of acute distress. Patient denies pain and discomfort. Bed in lowest position, side rails up x2, call light within reach. Will continue to monitor.
[2020-02-08 08:00] VITALS: BP 120/69
[2020-02-08] MEDS: DULOXETINE 30 MG CAPSULE.DR PO SCH (08:51)
[2020-02-08] MEDS: busPIRone 10 MG TABLET PO SCH (08:51)
[2020-02-08] MEDS: DIGOXIN 250 MCG TABLET PO SCH (08:52)
[2020-02-08] MEDS: QUETIAPINE FUMARATE 200 MG TABLET PO SCH ×3 (08:53→20:06)
[2020-02-08] MEDS: ALPRAZOLAM 0.5 MG TABLET PO SCH ×2 (08:54→17:30)
[2020-02-08] MEDS: APIXABAN 5 MG TABLET PO SCH ×2 (08:55→17:30)
[2020-02-08] MEDS ORDERED: LEVOTHYROXINE SODIUM 100 MCG TABLET PO SCH (09:00)
[2020-02-08] MEDS ORDERED: PANTOPRAZOLE SODIUM 40 MG TABLET.DR PO SCH (09:00)
[2020-02-08] MEDS ORDERED: LEVOTHYROXINE SODIUM 112 MCG TABLET PO SCH (09:00)
[2020-02-08] MEDS: Z GUARD REMEDY PASTE 57 GM TUBE TOP SCH ×2 (09:02→20:08)
[2020-02-08] MEDS: CLOTRIMAZOLE 1% CREAM 30 GM TUBE TOP SCH ×2 (09:02→17:30)
[2020-02-08 12:00] VITALS: BP 111/54
--- NOTE | 2020-02-08 13:41 | NUR ---
received pt. from nupur. pt. is oriented x2 resting in bed. pt. in stable condition. all needs met. safety measures in place.
[2020-02-08 16:00] VITALS: BP 102/58
[2020-02-08] MEDS: CEFTRIAXONE 1 G in IV DEXTROSE 5% 50 ML IV SCH (17:29)
--- NOTE | 2020-02-08 19:00 | NUR ---
Patient received in bed, awake. Patient has no s/s of acute distress or pain. Patient's vitals are stable. Safety measures in place. Bed low and locked position. Bed alarm on. Will continue with the plan of care.
[2020-02-08 20:00] VITALS: BP 101/68
--- NOTE | 2020-02-08 20:00 | NUR ---
Patient's IV on LFA got infiltrated. Restarted a new one on L hand, 22 G, patent and intact.
[2020-02-08] MEDS: MONTELUKAST SODIUM 10 MG TABLET PO SCH (20:05)
[2020-02-08] MEDS: LAMOTRIGINE 25 MG TABLET PO SCH (20:06)
[2020-02-08] MEDS: ATORVASTATIN 10 MG TABLET PO SCH (20:06)
[2020-02-08] MEDS: TRAZODONE 100 MG TABLET PO SCH (20:06)
--- NOTE | 2020-02-08 20:45 | NUR ---
Telemetry discontinued per MD order.
[2020-02-09 04:00] VITALS: BP 109/71
[2020-02-09] MEDS: PANTOPRAZOLE SODIUM 40 MG TABLET.DR PO SCH (06:44)
[2020-02-09] MEDS: LEVOTHYROXINE SODIUM 100 MCG TABLET PO SCH (06:44)
--- NOTE | 2020-02-09 07:00 | NUR ---
Patient slept throughout the night. Patient has no s/s of acute distress or pain. Patient on RA and setting WNL. Patient has no signs of peggy throughout the shift. Telemetry discontinued per MD order. IV is intact and patent. Patient is afebrile. Patient's vitals stable. Incontinence care provided. Needs attended. Safety measures in place. Bed low and locked position with rails x3 up. Will endorse to the oncoming nurse accordingly.
--- NOTE | 2020-02-09 08:00 | NUR ---
received pt. resting in bed. pt. denies pain/ discomfort. pt. denies sob/ difficulty breathing. iv intact l hand 22 guage intact patent saline lock. safety measures in place. call light within reach. will continue to monitor pt.
[2020-02-09] MEDS: ALPRAZOLAM 0.5 MG TABLET PO SCH ×2 (08:10→17:12)
[2020-02-09] MEDS: DIGOXIN 250 MCG TABLET PO SCH (08:12)
[2020-02-09] MEDS: Z GUARD REMEDY PASTE 57 GM TUBE TOP SCH ×2 (08:16→20:07)
[2020-02-09] MEDS: CLOTRIMAZOLE 1% CREAM 30 GM TUBE TOP SCH ×2 (08:16→17:12)
[2020-02-09] MEDS: APIXABAN 5 MG TABLET PO SCH ×2 (08:16→17:13)
[2020-02-09 12:00] VITALS: BP 109/69
[2020-02-09 15:45] VITALS: BP 119/73
[2020-02-09] MEDS: CEFTRIAXONE 1 G in IV DEXTROSE 5% 50 ML IV SCH (17:12)
--- NOTE | 2020-02-09 19:19 | NUR ---
Received patient lying in bed. AAOx2. Calm and pleasant. In no acute distress. Denies any pain or SOB when ask. Patient just stated she wanted to already go to sleep. No behavioral issues noted at this time. IV site on left FA intact and patent. Needs assessed and attended to. Safety measure initiated and call edmondson within reach.
[2020-02-09 19:42] VITALS: BP 100/56
[2020-02-09] MEDS: MONTELUKAST SODIUM 10 MG TABLET PO SCH (20:06)
[2020-02-09] MEDS: QUETIAPINE FUMARATE 200 MG TABLET PO SCH (20:06)
[2020-02-09] MEDS: ATORVASTATIN 10 MG TABLET PO SCH (20:06)
[2020-02-09] MEDS: TRAZODONE 100 MG TABLET PO SCH (20:06)
[2020-02-09] MEDS: LAMOTRIGINE 25 MG TABLET PO SCH (20:07)
[2020-02-10 04:40] VITALS: BP 95/59
[2020-02-10 05:41] LABS: BASOPHILS % (AUTO) 0.3 % (0.0-2.0); EOSINOPHILS # (AUTO) 0.3 K/uL (0.0-0.7); EOSINOPHILS % (AUTO) 3.3 % (0.0-7.0); HEMATOCRIT 42.4 % (31.2-41.9); HEMOGLOBIN 13.9 g/dL (10.9-14.3); LYMPHOCYTES # (AUTO) 1.6 K/uL (20.0-40.0); LYMPHOCYTES % (AUTO) 19.7 % (20.5-51.5); MEAN CORPUSCULAR HEMOGLOBIN 29.9 uug (24.7-32.8); MEAN CORPUSCULAR HGB CONC 33 g/dL (32.3-35.6); MEAN CORPUSCULAR VOLUME 90.9 fL (75.5-95.3); MONOCYTES # (AUTO) 0.5 K/uL (2.0-10.0); MONOCYTES % (AUTO) 6.4 % (0.0-11.0); NEUTROPHILS # (AUTO) 5.8 K/uL (1.8-8.9); NEUTROPHILS % (AUTO) 70.3 % (38.5-71.5); PLATELET COUNT (AUTO) 184 K/uL (179-408); RED BLOOD CELL COUNT(AUTO) 4.66 MIL/uL (3.63-4.92); WHITE BLOOD COUNT (AUTO) 8.3 K/uL (3.8-11.8)
[2020-02-10 05:57] LABS: CREATININE 0.8 mg/dL (0.6-1.3); MAGNESIUM 1.9 mg/dL (1.8-2.4); PHOSPHOROUS 3.6 mg/dL (2.5-4.9)
--- NOTE | 2020-02-10 06:04 | NUR ---
Slept well last night. In no acute distress. IV site on left FA remains intact and patent. No adverse event the whole shift. Needs assessed and attended to. Safety measure maintained and call edmondson within reach.
[2020-02-10] MEDS: PANTOPRAZOLE SODIUM 40 MG TABLET.DR PO SCH (06:16)
[2020-02-10] MEDS: LEVOTHYROXINE SODIUM 100 MCG TABLET PO SCH (06:16)
--- NOTE | 2020-02-10 07:30 | NUR ---
on bed, sleeping comfortable. no distress noted.
[2020-02-10] MEDS: ALPRAZOLAM 0.5 MG TABLET PO SCH ×2 (08:21→17:19)
[2020-02-10] MEDS: DIGOXIN 250 MCG TABLET PO SCH (08:25)
[2020-02-10] MEDS: APIXABAN 5 MG TABLET PO SCH ×2 (08:26→17:20)
[2020-02-10] MEDS: Z GUARD REMEDY PASTE 57 GM TUBE TOP SCH (08:27)
[2020-02-10] MEDS: CLOTRIMAZOLE 1% CREAM 30 GM TUBE TOP SCH ×2 (08:28→17:22)
--- NOTE | 2020-02-10 08:30 | NUR ---
ate breakfast fair, tolerated well. denies distress, calm, no outburst at this time
--- NOTE | 2020-02-10 10:34 | NUR ---
on and off nap. fluids provided, tolerating well
[2020-02-10 11:30] VITALS: BP 118/75
[2020-02-10] MEDS ORDERED: LEVO100T10 PO (12:03)
[2020-02-10] MEDS ORDERED: ACET325T53 PO (12:03)
[2020-02-10] MEDS ORDERED: QUET200T PO (12:03)
[2020-02-10] MEDS ORDERED: ATOR10TA PO (12:03)
[2020-02-10] MEDS ORDERED: PANT40TA2 PO (12:03)
[2020-02-10] MEDS ORDERED: TRAZ-257 PO (12:03)
--- NOTE | 2020-02-10 14:00 | NUR ---
son called, appreciative of care. aware pending mhu admission ,willl notify later
[2020-02-10 16:00] VITALS: BP 118/59
--- NOTE | 2020-02-10 16:28 | NUR ---
discharge from med surg, for admission to mhu. angela mcmahan.
--- NOTE | 2020-02-10 17:00 | NUR ---
rocephin scan in error
[2020-02-10] MEDS: CEFTRIAXONE 1 G in IV DEXTROSE 5% 50 ML IV SCH (17:16)
--- NOTE | 2020-02-12 19:37 | NUR ---
Patient in bed, awake and resting. Patient denies any acute distress or pain. Patient is cooperative, no sign of outburst or hallucinations. Vitals are stable. Bed low and locked in position. Will continue with the plan of care.
== END 2020-02-10 16:45 | DRG 871 ==
LOC: ER 12:12 → TELE 14:55 → TELE3 02-07 22:58 → MEDSURG3 02-08 20:40
PROVIDERS: ADMIT Internal Medicine; ATTEND Internal Medicine
DX: A41.9 Sepsis, unspecified organism (principal); G92 Toxic encephalopathy; I50.31 Acute diastolic (congestive) heart failure; N17.0 Acute kidney failure with tubular necrosis; J69.0 Pneumonitis due to inhalation of food and vomit; N39.0 Urinary tract infection, site not specified; D68.69 Other thrombophilia; I48.20 Chronic atrial fibrillation, unspecified; F31.64 Bipolar disorder, current episode mixed, severe, with psychotic features; G93.0 Cerebral cysts; Z95.0 Presence of cardiac pacemaker; E03.9 Hypothyroidism, unspecified; E78.5 Hyperlipidemia, unspecified; M19.90 Unspecified osteoarthritis, unspecified site; R73.03 Prediabetes; Z79.01 Long term (current) use of anticoagulants; J44.9 Chronic obstructive pulmonary disease, unspecified; I70.0 Atherosclerosis of aorta; I08.3 Combined rheumatic disorders of mitral, aortic and tricuspid valves; Z96.653 Presence of artificial knee joint, bilateral
CPT/HCPCS: 36415; 70030-TC; 70450; 71045; 83605; 83735; 84100; 84443; 85025; 85730; 87040; 87086; 87400; 93005; 93307; A9150; G0378; J0696; J1956; J2358; J2543; J7050; J7060; U0003-CS

== ENCOUNTER 2020-02-10 16:47 | Inpatient (IN) | payer MEDICARE, OTHER ==
[~2020-02-10] VITALS: Ht 152.4 cm; Wt 64.4 kg
[~2020-02-10 16:47] MED LIST changes: +ACET325T53 PO; +ALPR0.5T8 PO; +ATOR10TA PO; +BUSP5TAB3 PO; +DULO30CA2 PO; +LAMO25TA10 PO; +LEVO100T10 PO; +PANT40TA2 PO; +QUET200T PO; +TRAZ-257 PO
--- NOTE | 2020-02-10 17:30 | NUR ---
admitted for overflow geriatric voluntary care. oriented to room, made comfortable. calm , cooperative prn scream able to come .
[2020-02-10] MEDS ORDERED: LORAZEPAM 1 MG TABLET PO PRN (17:45)
[2020-02-10] MEDS ORDERED: TEMAZEPAM 7.5 MG CAPSULE PO PRN (17:45)
[2020-02-10] MEDS ORDERED: MAGNESIUM HYDROXIDE 30 ML LIQUID UDC PO PRN (17:45)
[2020-02-10] MEDS ORDERED: MAG HYDROX/AL HYDROX/SIMETH 30 ML LIQUID UDC PO PRN (17:45)
[2020-02-10] MEDS ORDERED: ACETAMINOPHEN 325 MG TABLET PO PRN (17:45)
[2020-02-10 21:00] VITALS: BP 109/64
[2020-02-10] MEDS: BLOOD SUGAR DIAGNOSTIC 1 EACH STRIP VI ONE (21:27)
[2020-02-10] MEDS ORDERED: AMOXICILLIN-CLAVUL 875-125MG TABLET ONE (21:47)
[2020-02-10] MEDS: AMOXICILLIN-CLAVUL 875-125MG TABLET PO SCH (21:53)
--- NOTE | 2020-02-11 01:18 | NUR ---
patient AAOx2. compliant with medications. no SI/HI at this time. safety precautions in place. snack provided at bedtime. independent with activity. cooperative with one episode of shouting. able to redirect and calm patient verbally. v/s stable at beginning of shift. no s/s of distress noted. will continue to monitor.
[2020-02-11 04:14] VITALS: BP 104/68
[2020-02-11 07:30] VITALS: BP 123/65
[2020-02-11 09:00] VITALS: BP 108/71
[2020-02-11] MEDS: AMOXICILLIN-CLAVUL 875-125MG TABLET PO SCH ×2 (09:46→20:21)
[2020-02-11] MEDS: DIGOXIN 250 MCG TABLET PO SCH (11:23)
[2020-02-11] MEDS: APIXABAN 5 MG TABLET PO SCH ×2 (11:26→17:09)
[2020-02-11 16:00] VITALS: BP 109/73
[2020-02-11] MEDS: ALPRAZOLAM 0.5 MG TABLET PO SCH (17:09)
[2020-02-11] MEDS: MONTELUKAST SODIUM 10 MG TABLET PO SCH (20:21)
[2020-02-11] MEDS: LAMOTRIGINE 25 MG TABLET PO SCH (20:21)
[2020-02-11] MEDS: QUETIAPINE FUMARATE 200 MG TABLET PO SCH (20:21)
[2020-02-11] MEDS: TRAZODONE 100 MG TABLET PO SCH (20:21)
[2020-02-11] MEDS: ATORVASTATIN 10 MG TABLET PO SCH (20:21)
[2020-02-11 21:01] VITALS: BP 137/69
[2020-02-12 06:18] VITALS: BP 97/62
[2020-02-12] MEDS: LEVOTHYROXINE SODIUM 100 MCG TABLET PO SCH (06:32)
[2020-02-12] MEDS: PANTOPRAZOLE SODIUM 40 MG TABLET.DR PO SCH (06:32)
--- NOTE | 2020-02-12 06:57 | NUR ---
COMPLIANT WITH MEDICATIONS. COOPERATIVE. V/S STABLE. 6 HOURS SLEEP ON MY SHIFT TONIGHT.
[2020-02-12] MEDS: AMOXICILLIN-CLAVUL 875-125MG TABLET PO SCH (09:05)
[2020-02-12] MEDS: ALPRAZOLAM 0.5 MG TABLET PO SCH ×2 (09:06→16:38)
[2020-02-12] MEDS: APIXABAN 5 MG TABLET PO SCH ×2 (09:08→16:37)
[2020-02-12] MEDS: DIGOXIN 250 MCG TABLET PO SCH (09:10)
--- NOTE | 2020-02-12 09:25 | NUR ---
Patient noted resting in bed, took all am medications crushed in applesauce, denies pain at this time, no signs of distress noted, call light in reach, bed locked and in lowest position, all needs met at this time.
[2020-02-12 11:00] VITALS: BP 125/58
[2020-02-12 17:42] VITALS: BP 124/94
--- NOTE | 2020-02-12 18:00 | NUR ---
no changes or behaviors noted this shift, took all medications
--- NOTE | 2020-02-12 19:00 | NUR ---
Patient in bed resting and awake. Patient has no s/s of acute distress or pain. Patient is cooperative. No signs of outburst or hallucination. Vitals are stable. Safety measures in place. Bed low and locked in position. Call lights within reach. Will continue with the plan of care.
[2020-02-12 20:00] VITALS: BP 119/72
[2020-02-12] MEDS: QUETIAPINE FUMARATE 200 MG TABLET PO SCH (21:05)
[2020-02-12] MEDS: MONTELUKAST SODIUM 10 MG TABLET PO SCH (21:05)
[2020-02-12] MEDS: LAMOTRIGINE 25 MG TABLET PO SCH (21:05)
[2020-02-12] MEDS: ATORVASTATIN 10 MG TABLET PO SCH (21:05)
[2020-02-12] MEDS: TRAZODONE 100 MG TABLET PO SCH (21:06)
[2020-02-13 04:00] VITALS: BP 102/74
--- NOTE | 2020-02-13 06:46 | NUR ---
Patient slept throughout the entire shift, approximately 7-8 hours. Patient has no s/s of acute distress or pain. Patient was cooperative and took all the prescribed medications. No episode of manic observed during my shift. All needs met at this time. Incontinence care provided. Vitals are stable. Current weight is 142lbs. on bed scale. Safety measures in place. Bed low and locked in position. Will endorse to the oncoming nurse accordingly.
[2020-02-13] MEDS: PANTOPRAZOLE SODIUM 40 MG TABLET.DR PO SCH (07:01)
[2020-02-13] MEDS: LEVOTHYROXINE SODIUM 100 MCG TABLET PO SCH (07:02)
--- NOTE | 2020-02-13 07:30 | NUR ---
PATIENT CALM AND COMFORTABLE WITH NO SIGNS OF DISTRESS; PATIENT WILL CONTINUE TO BE MONITORED.
--- NOTE | 2020-02-13 07:30 | NUR ---
PATIENT CALM AND COMFORTABLE RESTING IN BED WITH NO SIGNS OF STRESS ;PATIENT WILL CONTINUE TO BE MONITORED.
[2020-02-13] MEDS: ALPRAZOLAM 0.5 MG TABLET PO SCH ×2 (08:39→17:09)
[2020-02-13] MEDS: DIGOXIN 250 MCG TABLET PO SCH (08:42)
[2020-02-13] MEDS: APIXABAN 5 MG TABLET PO SCH ×2 (08:45→17:10)
[2020-02-13 09:41] LABS: BILIRUBIN,TOTAL 0.3 mg/dL (0.2-1.0); CREATININE 0.8 mg/dL (0.6-1.3); POTASSIUM 3.8 mmol/L (3.5-5.1); TOTAL PROTEIN, SERUM 6.2 g/dL (6.4-8.2)
[2020-02-13 09:42] LABS: BASOPHILS # (AUTO) 0.1 K/uL (0.0-8.0); BASOPHILS % (AUTO) 0.7 % (0.0-2.0); EOSINOPHILS # (AUTO) 0.2 K/uL (0.0-0.7); EOSINOPHILS % (AUTO) 2.7 % (0.0-7.0); HEMATOCRIT 43.9 % (31.2-41.9); HEMOGLOBIN 14.4 g/dL (10.9-14.3); LYMPHOCYTES # (AUTO) 1.5 K/uL (20.0-40.0); LYMPHOCYTES % (AUTO) 19.4 % (20.5-51.5); MEAN CORPUSCULAR HEMOGLOBIN 29.8 uug (24.7-32.8); MEAN CORPUSCULAR HGB CONC 33 g/dL (32.3-35.6); MEAN CORPUSCULAR VOLUME 90.8 fL (75.5-95.3); MONOCYTES # (AUTO) 0.5 K/uL (2.0-10.0); MONOCYTES % (AUTO) 6.7 % (0.0-11.0); NEUTROPHILS # (AUTO) 5.5 K/uL (1.8-8.9); NEUTROPHILS % (AUTO) 70.5 % (38.5-71.5); PLATELET COUNT (AUTO) 212 K/uL (179-408); RED BLOOD CELL COUNT(AUTO) 4.83 MIL/uL (3.63-4.92); WHITE BLOOD COUNT (AUTO) 7.8 K/uL (3.8-11.8)
[2020-02-13 11:33] VITALS: BP 112/64
--- NOTE | 2020-02-13 11:44 | NUR ---
Social Work Initial Discharge Plan: Patient currently resides at [place] [address] [facility] [address]; ([phone]). Per patient's brother KATERIN Katz ([phone]) who stated that he wants patient back to her Independent Living. This clinical writer spoke with hernan Scruggs ([phone]) who stated that patient is welcomed back upon discharge. rock worker will work with the patient and the MD regarding appropriate discharge planning. rock worker will form a safe and proper discharge.
--- NOTE | 2020-02-13 11:45 | NUR ---
Social Work Family Contact: This lyric writer called called brother Rigo ([phone]) to gather collateral. Per Rigo, he stated that he is the DPOA. Per patient's brother DPOA Rigo Gianna ([phone]) who stated that he wants patient back to her Independent Living [facility].
[2020-02-13 16:00] VITALS: BP 120/51
--- NOTE | 2020-02-13 19:16 | NUR ---
PATIENT WITH STABLE VITAL SIGNS THOROUGH OUT SHIFT; PATIENT WITH MILD FORGETFULNESS; PATIENT OTHERWISE IN STABLE CONDITION; PATIENT WILL CONTINUE TO BE MONITORED.
--- NOTE | 2020-02-13 19:20 | NUR ---
Patient in bed, sleeping. Patient has no s/s of acute distress or pain. Patient's vitals stable. Safety measures in place. Bed low and locked in position. Will continue with the plan of care.
[2020-02-13 20:02] VITALS: BP 113/51
[2020-02-13] MEDS: MONTELUKAST SODIUM 10 MG TABLET PO SCH (20:11)
[2020-02-13] MEDS: ATORVASTATIN 10 MG TABLET PO SCH (20:11)
[2020-02-13] MEDS: QUETIAPINE FUMARATE 200 MG TABLET PO SCH (20:11)
[2020-02-13] MEDS: TRAZODONE 100 MG TABLET PO SCH (20:11)
[2020-02-13] MEDS: LAMOTRIGINE 25 MG TABLET PO SCH (20:12)
[2020-02-14 04:00] VITALS: BP 110/65
[2020-02-14] MEDS: PANTOPRAZOLE SODIUM 40 MG TABLET.DR PO SCH (06:09)
[2020-02-14] MEDS: LEVOTHYROXINE SODIUM 100 MCG TABLET PO SCH (06:09)
--- NOTE | 2020-02-14 06:40 | NUR ---
Patient slept throughout the night approximately 8 hours. Patient is awake.Patient denies any acute distress or pain. Patient was cooperative. Needs attended. Incontinence care provided. Vitals are stable. Safety measures in place. Will endorse to the oncoming nurse accordingly.
[2020-02-14] MEDS: ALPRAZOLAM 0.5 MG TABLET PO SCH ×2 (09:13→17:46)
[2020-02-14] MEDS: DIGOXIN 250 MCG TABLET PO SCH (09:17)
[2020-02-14] MEDS: APIXABAN 5 MG TABLET PO SCH ×2 (09:17→17:47)
--- NOTE | 2020-02-14 11:59 | NUR ---
patient discharged to [facility] ; report given to rn in charge. patient in stable conditon with no signs of distress; patient belongins given.
[2020-02-14] MEDS ORDERED: Z GUARD REMEDY PASTE 57 GM TUBE TOP PRN (12:30)
--- NOTE | 2020-02-14 12:33 | NUR ---
WOUND CARE CONSULT: RECEIVED CONSULT FROM CLINICAL TRIAL EDUCATOR FOR SKIN ASSESSMENT OF RASHES, PRESENT ON ADMISSION. RECOMMENDATIONS MADE FOR SKIN PROTECTION AND SKIN CARE. DISCUSSED WITH NURSING STAFF. WILL SEE PRN. GALLARDO IN AGREEMENT WITH PLAN OF CARE. Addendum: 02/14/20 at 1234 by REDD RIVERS RN Amended: Links added.
[2020-02-14 16:00] VITALS: BP 114/66
--- NOTE | 2020-02-14 16:00 | NUR ---
Social Work Individual Therapy: care worker met with patient for brief counseling to address patient's labile mood. Patient presents to be calm. While this typewriter repairer was communicating with patient. Patient was responding to internal stimuli. Patient was experiencing visual hallucination and has been yelling "Tania, when will my food come.. Is it lunch time?". This typewriter repairer reassured that there was no Tania present. This typewriter repairer comforted patient and actively listened. Patient is unable to have a meaningful conversation.
[2020-02-14] MEDS: CLOTRIMAZOLE 1% CREAM 30 GM TUBE TOP SCH (17:46)
[2020-02-14 20:00] VITALS: BP 107/64
[2020-02-14] MEDS: TRAZODONE 100 MG TABLET PO SCH (20:08)
[2020-02-14] MEDS: ATORVASTATIN 10 MG TABLET PO SCH (20:09)
[2020-02-14] MEDS: LAMOTRIGINE 25 MG TABLET PO SCH (20:09)
[2020-02-14] MEDS: QUETIAPINE FUMARATE 200 MG TABLET PO SCH (20:09)
[2020-02-14] MEDS: MONTELUKAST SODIUM 10 MG TABLET PO SCH (20:10)
[2020-02-14] MEDS: Z GUARD REMEDY PASTE 57 GM TUBE TOP SCH (20:13)
--- NOTE | 2020-02-14 21:53 | NUR ---
PATIENT RECEIVED IN MICHAEL CHAIR SECURED IN FRONT OF NURSES STATION. PATIENT COMPLAINT WITH MEDICATION. NO AGGRESSIVE OR COMBATIVE BEHAVIOR NOTED, WILL CONTINUE TO MONITOR. PATIENT IS COMPLAINT WITH CARE PROVIDED, SHE IS ABLE TO REPOSITION HER SELF WHILE IN BED. PATIENT DENIES SI, WILL CONTINUE TO MONITOR. SAFE ENVIRONMENT PROVIDED, FREQUENT ROUNDING, AND CLUTTER FREE ENVIRONMENT. BED IN LOWEST POSITION, BED LOCKED, AND BED ALARM ON WHILE IN BED. PATIENT WAS RESPONDING TO INTERNAL STIMULI, PATIENT IS ALERT/ORIENTED X1 WITH CONFUSION NOTED.
[2020-02-15] MEDS: LEVOTHYROXINE SODIUM 100 MCG TABLET PO SCH (06:21)
[2020-02-15] MEDS: PANTOPRAZOLE SODIUM 40 MG TABLET.DR PO SCH (06:21)
[2020-02-15 07:47] VITALS: BP 95/56
[2020-02-15] MEDS: ALPRAZOLAM 0.5 MG TABLET PO SCH ×2 (09:16→16:24)
[2020-02-15] MEDS: APIXABAN 5 MG TABLET PO SCH ×2 (09:17→16:26)
[2020-02-15] MEDS: DIGOXIN 250 MCG TABLET PO SCH (09:18)
[2020-02-15] MEDS: CLOTRIMAZOLE 1% CREAM 30 GM TUBE TOP SCH ×2 (09:19→16:25)
[2020-02-15] MEDS: Z GUARD REMEDY PASTE 57 GM TUBE TOP SCH ×2 (09:19→21:28)
[2020-02-15 13:00] VITALS: BP 107/63
--- NOTE | 2020-02-15 15:49 | NUR ---
Social Work Family Contact: cellar worker spoke with patient's brother KATERIN Sierra ([phone]) who is aware of patient's discharge for 02/18. Per Rigo, he stated that he will pick patient up around 2PM.
--- NOTE | 2020-02-15 16:00 | NUR ---
Gps/Repairer Resistance Welding Machines- Kept up on her anabela-chair by the Nurses station for safety. Unsteady gait, noted patient holding on to the chilel when going to the bathroom, ambulated with front wheel walker, reviewed safety. Adequate fluid intake, constipation noted. had bms. after couple of tries to the bathroom .
[2020-02-15 20:00] VITALS: BP 123/67
--- NOTE | 2020-02-15 20:30 | NUR ---
GPS: NURSE'S NOTE. RECEIVED PATIENT IN HER ROOM IN BED. SHE IS NOTED AWAKE. INITIALLY SHE STATED TO THIS SENIOR DATA SCIENTIST, "I DON'T WANT TO TALK, I JUST WANT TO SLEEP". THEN SHE TURNED HER FACE AND BODY AWAY FROM THIS SENIOR DATA SCIENTIST; HOWEVER; LATER ON, PATIENT WAS ABLE TO VERBALIZED FEELINGS. PATIENT DENIED SI/HI/VH/AH. SHE IS ABLE TO VERBALIZED FEELINGS. V/S STABLE AT THIS TIME. SHE IS REASSURED FOR HER SAFETY. SAFETY AND FALL PRECAUTION IN PLACE. WILL CONTINUE TO MONITOR.
[2020-02-15] MEDS: MONTELUKAST SODIUM 10 MG TABLET PO SCH (20:42)
[2020-02-15] MEDS: LAMOTRIGINE 25 MG TABLET PO SCH (20:43)
[2020-02-15] MEDS: ATORVASTATIN 10 MG TABLET PO SCH (20:43)
[2020-02-15] MEDS: QUETIAPINE FUMARATE 200 MG TABLET PO SCH (20:43)
[2020-02-15] MEDS: TRAZODONE 100 MG TABLET PO SCH (20:43)
[2020-02-16] MEDS: LEVOTHYROXINE SODIUM 100 MCG TABLET PO SCH (06:39)
[2020-02-16] MEDS: PANTOPRAZOLE SODIUM 40 MG TABLET.DR PO SCH (06:39)
[2020-02-16 07:30] VITALS: BP 101/66
[2020-02-16] MEDS: DIGOXIN 250 MCG TABLET PO SCH (08:26)
[2020-02-16] MEDS: ALPRAZOLAM 0.5 MG TABLET PO SCH ×2 (08:26→16:49)
[2020-02-16] MEDS: CLOTRIMAZOLE 1% CREAM 30 GM TUBE TOP SCH ×2 (08:27→16:54)
[2020-02-16] MEDS: Z GUARD REMEDY PASTE 57 GM TUBE TOP SCH ×2 (08:27→20:56)
[2020-02-16] MEDS: APIXABAN 5 MG TABLET PO SCH ×2 (09:37→16:53)
--- NOTE | 2020-02-16 11:40 | NUR ---
Social Work Individual Therapy: trailhead construction worker met with patient for brief counseling to address patient's labile mood. Patient appears to be responding to internal stimuli, she continues to yell "Tania, Tania, where are you?". This conventional underwriter comforted patient and actively listened. Patient is unable to have a meaningful conversation with this conventional underwriter at this time.
--- NOTE | 2020-02-16 12:33 | NUR ---
Gps/Video Clerk- Stayed up in her anabela-chair by the Nurses station for safety. Patient gets up to the bathroom unsteady gait , needed assist.
[2020-02-16 15:12] VITALS: BP 109/67
[2020-02-16 20:15] VITALS: BP 111/62
[2020-02-16] MEDS: TRAZODONE 100 MG TABLET PO SCH (20:54)
[2020-02-16] MEDS: MONTELUKAST SODIUM 10 MG TABLET PO SCH (20:54)
[2020-02-16] MEDS: ATORVASTATIN 10 MG TABLET PO SCH (20:54)
[2020-02-16] MEDS: LAMOTRIGINE 25 MG TABLET PO SCH (20:54)
[2020-02-16] MEDS: QUETIAPINE FUMARATE 200 MG TABLET PO SCH (20:54)
--- NOTE | 2020-02-17 04:44 | NUR ---
GPS?REMOVABLE PROSTHODONTIST: Remain calm and cooperative with meds and care. Denies any acute distress or pain. Patient was cooperative. Needs attended. Incontinence care provided. Vitals are stable. Safety measures in place. Resting in bed comfortably.
[2020-02-17] MEDS: LEVOTHYROXINE SODIUM 100 MCG TABLET PO SCH (06:03)
[2020-02-17] MEDS: PANTOPRAZOLE SODIUM 40 MG TABLET.DR PO SCH (06:03)
--- NOTE | 2020-02-17 06:15 | NUR ---
Gps: Patient slept throughout the night approximately 7:45 hours. Patient is awake. lying in bed. Patient denies any acute distress or pain. Patient was cooperative. Needs attended. Incontinence care provided. Safety measures in place.
[2020-02-17 07:50] VITALS: BP 101/62
[2020-02-17] MEDS: ALPRAZOLAM 0.5 MG TABLET PO SCH ×2 (08:51→17:19)
[2020-02-17] MEDS: DIGOXIN 250 MCG TABLET PO SCH (08:58)
[2020-02-17] MEDS: APIXABAN 5 MG TABLET PO SCH ×2 (09:01→17:18)
[2020-02-17] MEDS: Z GUARD REMEDY PASTE 57 GM TUBE TOP SCH ×2 (09:04→20:33)
[2020-02-17] MEDS: CLOTRIMAZOLE 1% CREAM 30 GM TUBE TOP SCH ×2 (09:05→17:20)
[2020-02-17 16:12] VITALS: BP 120/71
[2020-02-17 20:00] VITALS: BP 126/78
[2020-02-17] MEDS: MONTELUKAST SODIUM 10 MG TABLET PO SCH (20:32)
[2020-02-17] MEDS: QUETIAPINE FUMARATE 200 MG TABLET PO SCH (20:32)
[2020-02-17] MEDS: ATORVASTATIN 10 MG TABLET PO SCH (20:32)
[2020-02-17] MEDS: LAMOTRIGINE 25 MG TABLET PO SCH (20:32)
[2020-02-17] MEDS: TRAZODONE 100 MG TABLET PO SCH (20:32)
--- NOTE | 2020-02-18 04:06 | NUR ---
Received patient in bed. AAO X2. No acute distress or SOB was noted.Calm and cooperative. Compliant with medication.No SI. No behavioral issues. Safety measures maintained. Continue to monitor.
[2020-02-18] MEDS: LEVOTHYROXINE SODIUM 100 MCG TABLET PO SCH (06:52)
[2020-02-18] MEDS: PANTOPRAZOLE SODIUM 40 MG TABLET.DR PO SCH (06:52)
[2020-02-18 07:30] VITALS: BP 105/64
[2020-02-18] MEDS: ALPRAZOLAM 0.5 MG TABLET PO SCH ×2 (08:24→16:43)
[2020-02-18] MEDS: DIGOXIN 250 MCG TABLET PO SCH (08:24)
[2020-02-18] MEDS: CLOTRIMAZOLE 1% CREAM 30 GM TUBE TOP SCH ×2 (08:25→16:43)
[2020-02-18] MEDS: Z GUARD REMEDY PASTE 57 GM TUBE TOP SCH ×2 (09:08→20:13)
[2020-02-18] MEDS: APIXABAN 5 MG TABLET PO SCH ×2 (09:09→16:44)
[2020-02-18 16:00] VITALS: BP 108/58
--- NOTE | 2020-02-18 18:30 | NUR ---
patient cooperative, medications compliant, pleasant affect, Unsteady gait, needed assist with ambulations, had 1 BM .
[2020-02-18 19:57] VITALS: BP 101/60
[2020-02-18] MEDS: QUETIAPINE FUMARATE 200 MG TABLET PO SCH (20:08)
[2020-02-18] MEDS: ATORVASTATIN 10 MG TABLET PO SCH (20:12)
[2020-02-18] MEDS: LAMOTRIGINE 25 MG TABLET PO SCH (20:12)
[2020-02-18] MEDS: TRAZODONE 100 MG TABLET PO SCH (20:12)
[2020-02-18] MEDS: MONTELUKAST SODIUM 10 MG TABLET PO SCH (20:12)
[2020-02-18 20:15] VITALS: BP 118/62
[2020-02-19] MEDS: PANTOPRAZOLE SODIUM 40 MG TABLET.DR PO SCH (06:24)
[2020-02-19] MEDS: LEVOTHYROXINE SODIUM 100 MCG TABLET PO SCH (06:25)
--- NOTE | 2020-02-19 06:29 | NUR ---
GPS/ABLE SEAMAN: Remain calm and cooperative with meds and care. Denies any acute distress or pain. Patient was cooperative. Needs attended. Incontinence care provided. Vitals are stable. Safety measures in place. slept 8 hrs through the night. Resting in bed comfortably.
[2020-02-19 08:06] VITALS: BP 104/54
--- NOTE | 2020-02-19 08:19 | NUR ---
Discharge Note: Patient will be discharged to [facility] [address] [facility] [place] [address] ([phone]). [facility] ([phone]) states they are ready to accept the patient today. Patients brother/DPCRESENCIO Sierra ([phone]) is aware and agreeable with discharge plans and has agreed to provide transportation for the patient at 2:00pm. Patient is aware and agreeable with discharge plans. Patient is alert and oriented x3, is unable to plan for self-care at this time, however, is willing to accept care at the facility. Patient denies any suicidal or homicidal ideation. Patient will be provided with in home health services by the facility to ensure medication management, shower assistance, and physical therapy. The facility is providing a 24-hour caregiver for the patient, who will also assist with meals, laundry, and safety. The patient will be following up with (Foundry Operator) at the facility Dr. Rocha and (Psychiatrist) Dr. Thomas. Patient presents with euthymic mood and congruent affect.
[2020-02-19] MEDS: ALPRAZOLAM 0.5 MG TABLET PO SCH (08:23)
[2020-02-19] MEDS: DIGOXIN 250 MCG TABLET PO SCH (08:24)
[2020-02-19] MEDS: APIXABAN 5 MG TABLET PO SCH (08:30)
[2020-02-19] MEDS: CLOTRIMAZOLE 1% CREAM 30 GM TUBE TOP SCH (08:35)
[2020-02-19] MEDS: Z GUARD REMEDY PASTE 57 GM TUBE TOP SCH (08:42)
--- NOTE | 2020-02-19 12:54 | NUR ---
Patient will be discharged to [facility], Patients brother/DPOA Rigo is aware and agreeable with discharge plans and has agreed to provide transportation for the patient at 2:00pm. patient is A/O x2 confused at time , ambulating with FWW, vital sign stable ,all personal belonging given to patient.
== END 2020-02-19 14:45 | disposition home health service (06) | DRG 885 ==
LOC: GPSOV3 16:47 → GPS 02-14 12:13
PROVIDERS: ADMIT Psychiatry & Neurology Psychiatry; ATTEND Internal Medicine
DX: F31.64 Bipolar disorder, current episode mixed, severe, with psychotic features (principal); N17.0 Acute kidney failure with tubular necrosis; A41.9 Sepsis, unspecified organism; G92 Toxic encephalopathy; J69.0 Pneumonitis due to inhalation of food and vomit; N39.0 Urinary tract infection, site not specified; D68.69 Other thrombophilia; I48.20 Chronic atrial fibrillation, unspecified; E03.9 Hypothyroidism, unspecified; E78.5 Hyperlipidemia, unspecified; M19.90 Unspecified osteoarthritis, unspecified site; R73.03 Prediabetes; Z95.0 Presence of cardiac pacemaker; G93.0 Cerebral cysts; I70.0 Atherosclerosis of aorta; Z96.653 Presence of artificial knee joint, bilateral; I50.9 Heart failure, unspecified
CPT/HCPCS: 36415; 85025